=== PATIENT | female | born 1985 | race Caucasian/White ===

== ENCOUNTER 2023-10-23 13:06 | Inpatient (IN) ==
[2023-10-23] MEDS ORDERED: LIDOCAINE 1% LOCAL 20 ML VIAL INFIL PRN (13:28)
[2023-10-23] MEDS ORDERED: OXYTOCIN 30 UNITS/NSS 30 UNITS/500 ML BAG IV PRN ×3 (13:28→19:05)
[2023-10-23] MEDS: LACTATED RINGER'S 1,000 ML IV PRN ×2 (13:40→14:36)
--- NOTE | 2023-10-23 13:53 | History & Physical Report ---
Date of Service October 23, 2023 History of Present Illness Chief Complaint: onet of labor at 40.2 weeks. GBS is negative. Primary Care Provider: NO PCP see above Allergies Allergy/AdvReac Type Severity Reaction Status Date / Time No Known Allergies Allergy Unverified 10/23/23 13:36 Home Medications Medication Instructions Recorded Confirmed Type ferrous sulfate 325 mg (65 mg 325 mg PO DAILY 10/23/23 10/23/23 History iron) tablet vits no.130-ferrous fum 1 tab PO DAILY 10/23/23 10/23/23 History 27 mg iron-folic acid 800 mcg tablet ( Vitamin) Patient History Medical History Human papilloma virus Surgical History Hx of LASIK Hx of appendectomy H/O colposcopy with cervical biopsy Social History Smoking Status: Never smoker Hx Alcohol Use: No Hx Substance Use: No Preferred Language: Yakut Communication Ability: Effective Mapping Technician Required: No Beliefs That Will Affect Care: None marital status: Current Living Situation: Spouse and Family Other Information That Helps Us Care for You: No Feels Safe at Home: Yes Safety Concerns: Feels Safe At This Time Assistive Devices: None 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 Review of Systems All systems reviewed & are unremarkable except as noted in HPI & below Physical Exam Constitutional: WD/WN, vitals as above Eyes: PERRL, conjunctivae normal, anicteric sclerae Respiratory: normal respiratory effort, lungs clear to auscultation Cardiovascular: RRR, no murmur, no edema Gastrointestinal (Abdomen): normal bowel sounds, soft, nontender, no hepatosplenomegaly Musculoskeletal: Extremities: extremities normal to inspection Skin: no rashes, warm and dry Neurologic: patellar DTR's 2+ bilat, sensation intact Psychiatric: A+Ox3, euthymic affect Genitourinary: no vaginal lesions, no adnexal mass OB Exam Abdomen: + vertex Manual OB Exam: + cervical dilation 4 cm, + cervical effacement 80% and + station -2 OB Exam Monitor Tracing: + external FHT monitor used, + external uterine monitor used, + category I and + normal FHT variability EFW 8-8.5 lbs. Results & Data Vital Signs (Past 12 Hours) Vital Signs Temp Resp 10/23/23 13:39 36.7 C 20 Code Status & VTE Plan VTE Prophylaxis Plan VTE Prophylaxis will be ordered: No Monitoring External Monitor Cat 1
[2023-10-23 14:33] LABS: Hematocrit (blood only) 37.3 % (37.0-47.0); Hemoglobin 12.7 g/dl (12.0-16.0); Mean Corpuscular Hemoglobin 32.4 pg (25.0-34.0); Mean Corpuscular Volume 95.2 fL (80.0-100.0); Mean Platelet Volume 11.8 fL (9.4-12.4); Platelet Count 154 K/uL (130-400); RDW Coefficient of Variation 14.1 % (11.5-14.5); RDW Standard Deviation 48.6 fL (36.4-46.3); Red Blood Count 3.92 M/uL (4.20-5.40); White Blood Count 14.83 K/ul (4.8-10.8)
[2023-10-23] MEDS ORDERED: LIDOCAINE 2%/EPINEPHRINE 1:200,000 20 ML PF ONE (14:40)
[2023-10-23] MEDS ORDERED: BUPIVACAINE 0.25% PF 30 ML VIAL ONE (14:40)
[2023-10-23] MEDS ORDERED: fentaNYL citrate PF 100 MCG/2 ML VIAL ONE (14:40)
[2023-10-23] MEDS ORDERED: ePHEDrine sulfate 50 MG/ML AMP ONE (14:40)
[2023-10-23] MEDS ORDERED: SODIUM CHLORIDE 0.9% PF INJ 10 ML VIAL ONE (14:40)
[2023-10-23] MEDS ORDERED: fentANYL 2 MCG/ML BUPIVacaine 0.125%-NSS 100ML BAG ONE (14:40)
[2023-10-23] MEDS ORDERED: ROPIVACAINE 0.5% PF 5 MG/ML 20 ML VIAL EPI PRN (15:01)
[2023-10-23] MEDS ORDERED: SODIUM CHLORIDE 0.9% PF INJ 10 ML VIAL EPI STA (15:01)
[2023-10-23] MEDS ORDERED: fentaNYL citrate PF 100 MCG/2 ML VIAL EPI STA (15:01)
[2023-10-23] MEDS ORDERED: fentANYL 2 MCG/ML BUPIVacaine 0.125%-NSS 100ML BAG EPI PRN (15:01)
[2023-10-23] MEDS ORDERED: BUPIVACAINE 0.25% PF 30 ML VIAL EPI STA (15:01)
[2023-10-23] MEDS ORDERED: SODIUM CHLORIDE 0.9% PF INJ 10 ML VIAL EPI PRN (15:01)
[2023-10-23] MEDS ORDERED: ONDANSETRON INJ 2 MG/ML 2 ML VIAL IV PRN (15:01)
[2023-10-23] MEDS ORDERED: NALOXONE HCL 1 MG in SODIUM CHLORIDE 0.9% 1,000 ML IV PRN (15:01)
[2023-10-23] MEDS ORDERED: NALBUPHINE HCL 5 MG in SYRINGE 0 ML IV PRN (15:01)
[2023-10-23] MEDS ORDERED: ePHEDrine sulfate 50 MG/ML AMP IV PRN (15:01)
[2023-10-23] MEDS ORDERED: NALOXONE HCL 0.4 MG/1 ML VIAL/CARP IV PRN (15:01)
[2023-10-23] MEDS ORDERED: fentaNYL citrate PF 100 MCG/2 ML VIAL EPI PRN (15:01)
[2023-10-23] MEDS ORDERED: LIDOCAINE 2%/EPINEPHRINE 1:200,000 20 ML PF EPI STA (15:01)
[2023-10-23] MEDS ORDERED: LIDOCAINE 2% MPF LOCAL 5 ML VIAL EPI PRN (15:01)
[2023-10-23] MEDS ORDERED: diphenhydrAMINE 50 MG/ML VIAL IV PRN (15:01)
[2023-10-23] MEDS ORDERED: BUPIVACAINE 0.25% PF 30 ML VIAL EPI PRN (15:01)
--- NOTE | 2023-10-23 15:03 | Anesthesiology Consultation ---
Date of Service October 23, 2023 Assessment & Plan (1) Encounter for pre-operative examination: Chart Review Chart Review: Acceptable Risk for Surgery and Patient NOT seen in Pre Admission Testing Consults Requested none History Height/Weight Height: 5 ft 4 in Weight: 90.718 kg Allergies Allergy/AdvReac Type Severity Reaction Status Date / Time No Known Allergies Allergy Unverified 10/23/23 13:36 Medications Home Medications Medication Instructions Recorded Confirmed Last Taken ferrous sulfate 325 mg (65 mg 325 mg PO DAILY 10/23/23 10/23/23 10/22/23 iron) tablet vits no.130-ferrous fum 1 tab PO DAILY 10/23/23 10/23/23 10/23/23 27 mg iron-folic acid 800 mcg tablet ( Vitamin) Active Medications Generic Name Dose Route Start Last Admin Trade Name Freq PRN Reason Stop Dose Admin Lactated Ringer's 1,000 mls @ 125 mls/hr 10/23/23 13:28 10/23/23 14:36 Lr IV 10/25/23 13:27 125 mls/hr .Q8H PRN Administration L&D Protocol Protocol Past Medical History Medical History (Updated 10/23/23 @ 15:03 by Raheem Coats MD) Encounter for pre-operative examination Human papilloma virus Exercise / Class Metabolic Activity II 4-5 Yardwork/Stairs/Walk up hill Past Surgical History Surgical History Hx of LASIK Hx of appendectomy H/O colposcopy with cervical biopsy Past Anesthesia History No Hx of Anesthesia Complications and No Family Hx of Anesthesia Complications Social History Smoking Status: Never smoker Hx Alcohol Use: No Hx Substance Use: No substance use type: does not use Physical Exam Vital Signs Last Vital Signs Temp 36.7 C 10/23/23 13:39 Pulse 87 10/23/23 15:23 Resp 18 10/23/23 14:22 BP 120/74 10/23/23 15:23 Pulse Ox 100 10/23/23 15:23 Testing Laboratory Results 10/23/23 14:07
--- NOTE | 2023-10-23 17:04 | Labor Progress Brief Note ---
Date of Service October 23, 2023 Assessment & Plan Admission and Anticipated Discharge Date Admission Date: October 23, 2023 Physical Exam Genitourinary: Manual OB Exam: + cervical dilation 5 cm and 6 cm, + cervical effacement 90% and + station 0 OB Exam Monitor Tracing: + external FHT monitor used, + external uterine monitor used, + category I and + normal FHT variability AROM with Amni-hook scant fluid Results & Data Vital Signs (Past 12 Hours) Vital Signs Temp Pulse Resp BP Pulse Ox 10/23/23 17:00 106 H 92 10/23/23 16:58 74 97 10/23/23 16:54 76 112/58 L 10/23/23 16:53 80 98 10/23/23 16:48 85 98 10/23/23 16:43 78 99 10/23/23 16:40 95 H 124/66 10/23/23 16:38 84 99 10/23/23 16:33 101 H 98 10/23/23 16:30 16 10/23/23 16:30 16 10/23/23 16:28 74 98 10/23/23 16:25 75 108/56 L 10/23/23 16:23 73 99 10/23/23 16:18 85 98 10/23/23 16:13 78 98 10/23/23 16:08 86 99 10/23/23 16:05 80 122/65 10/23/23 16:03 82 98 10/23/23 16:00 75 18 121/64 10/23/23 15:58 82 99 10/23/23 15:55 83 122/68 10/23/23 15:53 86 99 10/23/23 15:50 77 118/66 10/23/23 15:48 85 97 10/23/23 15:47 68 129/60 10/23/23 15:45 18 10/23/23 15:45 18 10/23/23 15:43 81 97 10/23/23 15:40 77 132/65 10/23/23 15:38 97 10/23/23 15:38 77 10/23/23 15:38 71 128/77 10/23/23 15:37 20 10/23/23 15:37 20 10/23/23 15:36 83 116/66 10/23/23 15:34 90 116/66 10/23/23 15:33 87 96 10/23/23 15:32 18 10/23/23 15:32 18 10/23/23 15:31 76 107/55 L 10/23/23 15:30 77 102/55 L 10/23/23 15:28 78 103/59 L 97 10/23/23 15:26 77 123/58 L 10/23/23 15:23 87 120/74 100 10/23/23 15:21 78 118/74 10/23/23 15:20 90 113/73 10/23/23 15:18 85 97 10/23/23 15:13 81 99 10/23/23 15:08 83 99 10/23/23 15:03 71 99 10/23/23 15:00 18 10/23/23 15:00 18 10/23/23 14:58 78 99 10/23/23 14:53 79 97 10/23/23 14:48 82 98 10/23/23 14:43 77 99 10/23/23 14:38 79 100 10/23/23 14:36 75 114/79 10/23/23 14:22 18 10/23/23 14:22 18 10/23/23 13:39 36.7 C 20 10/23/23 13:30 20 10/23/23 13:30 20
[2023-10-23] MEDS ORDERED: BENZOCAINE 20% SPRY 85 APPLN/85 GM CAN EXT PRN (19:05)
[2023-10-23] MEDS ORDERED: DIPHTHERIA/TETANUS/PERTUSSIS Vaccine (Tdap, Age 7+yrs) 0.5mL SYR/VL IM ONE (19:05)
[2023-10-23] MEDS ORDERED: bisacodyL 10 MG SUPP PR PRN (19:05)
[2023-10-23] MEDS ORDERED: HYDROCORTISONE ACETATE 25 MG SUPP PR PRN (19:05)
[2023-10-23] MEDS ORDERED: ACETAMINOPHEN 325 MG TAB PO PRN (19:05)
[2023-10-23] MEDS ORDERED: IBUPROFEN 600 MG TAB PO PRN (19:05)
--- NOTE | 2023-10-23 19:07 | Delivery Summary ---
Vaginal Delivery Summary Date of Service October 23, 2023 Vaginal Delivery Summary live female KATHERINE over intact perineum with nuchal cord x1 reduced at delivery with delayed cord clamping and Apgars 8/9 weight pending. Cord blood obtained followed by spontaneous delivery of intact placenta. No tears. EBL 150 ml. Final sponge and instrument count are correct. Mom and baby stable.
--- NOTE | 2023-10-23 20:05 | Anesthesia Procedure Note ---
Date of Service October 23, 2023 Anesthesia Post Epidural Note Vital Signs Vital Signs: Temp Pulse Resp BP Pulse Ox 36.6 C 80 18 98/57 L 96 10/23/23 19:15 10/23/23 20:00 10/23/23 19:45 10/23/23 20:00 10/23/23 19:43 Notes Mental Status: alert / awake / arousable and participated in evaluation Patient Amnestic to Procedure: No Nausea / Vomiting: adequately controlled Pain: adequately controlled Airway Patency, RR, SpO2: stable & adequate BP & HR: stable & adequate Hydration State: stable & adequate Neuraxial Anesthesia: was administered and sensory block is resolving Anesthetic Complications: no major complications apparent and Pt Satisfied with anesthetic care Epidural: Removed without complications and With tip intact
--- OUTSIDE RECORDS SUMMARY | 2023-10-23 22:14 | External Medical Summary | Summary of Care ---
Author Name Unknown Organization [facility] Address [address] [facility] [place] [address] Phone [phone] Care Team Providers Care Family Services Manager Name Role Phone Unavailable Primary Care Provider Unavailabl e Reason for Visit * Reason Onset Date Comments Advice 07/15/2023 Encounter Details Date Type Department Care Team (Late st Contact Info) Description 07/15/2023 Telephone [facility]necology[facility] [address] [place] [address] Na Khan CRNP [address] [place] [address] Advice Allergies No known active allergiesdocumented as of this encounter (statuses as of 10/14/2023) Medications Medication Sig Dispensed Refills Start Date End Date Status Multivitamin Adult Oral Tablet Chewable Take by mouth. 0 Activ e Folic Acid 0.8 MG Oral Capsule Take by mouth. 0 Active documented as of this encounter (statuses as of 10/14/2023) Active Problems Problem Noted Date Diagnosed Date Antepartum anemia complicating 023 History of abnormal cervical Pap smear 3 Overview: Pap at NOB NILM/+HPV. Needs colpo . Normal 03/14/2023 AMA (advanced maternal age) multigravida 35+ History of macrosomia in inf ant in prior , currently 03/14/2023 Overview: 2nd child 4.338 kg - consider 3rd trimester growth u/s Estimated Date of Delivery Comme nts Yes 10/21/2023 Based on last me nstrual period of 01/14/2023 documented as of this encounter (statuses as of 10/14/2023) Social History Tobacco Use Types Packs/Day Years Used Date Smoking Tobacco: Never Smokeless Tobacco: Never Alcohol Use Standard Drinks/Week Comments Not Currently 0 (1 standard drink = 0.6 oz pur e alcohol) PHQ-2 Answer Date Recorded PHQ Adult Total Score 1 10/08/2023 Hunger Vital Sign Answer Date Recorded Within the past 12 months, y ou worried that your food would run out before you got the money to buy more. Never true 05/30/20 23 Within the past 12 months, t he food you bought just didn't last and you didn't have money to get more. Never true 05/30/2023 [place] Depression Scale Answer Date Recorded [place] Depression Scale Total 4 09/19/2023 The thought of harming myself has occurred to me . Never 09/19/2023 Estimated Date of Delivery Comme nts Yes 10/21/2023 Based on last me nstrual period of 01/14/2023 Sex and Gender Information Value Date Recorded Sex Assigned at Female 04/08/2022 10:09 PM EDT Gender Identity Female 04/08/2022 10:09 PM EDT Sexual Orientation Straight 04/08/2022 10 :09 PM EDT Job Start Date Occupation Industry Not on file Not on file Not on file documented as of this encounter Miscellaneous Notes * Telephone Encounter - Wen Coreas OSA - 07/15/2023 10:02 AM EDT Pt called to let us know she cannot make the appt that was scheduled on 08/01. She will have her glucola screening done at the [facility] lab in 2 wks. She will keep her scheduled 08/18 appt, but if glucola numbers come back abnormal she will make it work to come in sooner. 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 Advised to schedule appts out due to this. documented in this encounter Plan of Treatment Upcoming Encounters Date Type Department Care Team (Late st Contact Info) Description 10/21/2023 10:00 AM EST Office Visit Gynecology/Obstetrics [facility] [address] [place] [address] Na Khan CRNP [address] [place] [phone] Health Maintenance Due Date Last Done Comments Diabetes Screening 1984 Hepatitis B (1 of 3 - 3-dose series) 1984 COVID-19 Vaccine (#1) 1984 DTaP,Tdap,and Td Vaccines (1 - Tdap) 2003 Influenza Vaccine (FLU shot) (#1) 2023 Depression Screening 10/08/2024 10/08/2023 Pap Smear 03/14/2026 03/14/2023, 03/07/2022 Cervical Cancer Screening 03/14/2028 HPV/Co-Test 03/14/2028 03/14/2023 GARDASIL-HPV IMMUNIZATION SERIES Aged Out No longer eligible b ased on patient's age to complete this topic MENINGOCOCCAL (MENACTRA/MENVEO) Aged Out No longer eligible b ased on patient's age to complete this topic Pneumococcal Vaccine: Pediatrics (0 to 5 Years) and At-Risk Patients (6 to 64 Years) Aged Out No longer eligible b ased on patient's age to complete this topic documented as of this encounter Medical Devices Not on filedocumented as of this encounter
--- OUTSIDE RECORDS SUMMARY | 2023-10-23 22:14 | External Medical Summary | Summary of Care ---
Author Name Unknown Organization [facility] Address [address] [facility] [place] [address] Phone [phone] Care Team Providers Care Mine Boss Name Role Phone Unavailable Primary Care Provider Unavailabl e Reason for Visit * Reason Comments Return Visit Encounter Details Date Type Department Care Team (Late st Contact Info) Description 10/21/2023 10:00 AM EST Office Visit [facility] [address] [place] [address] Na Khan CRNP [address] [place] [phone] Normal in third trimester*; Multigravida of advanced maternal age in third trimester; History of macrosomia in in prior , currently ; History of abnormal cervical Pap smear; Antepartum anemia complicating ; Post-term , 40-42 weeks of gestation Allergies No known active allergiesdocumented as of this encounter (statuses as of 10/21/2023) Medications Medication Sig Dispensed Refills Start Date End Date Status Multivitamin Adult Oral Tablet Chewable Take by mouth. 0 Active Folic Acid 0.8 MG Oral Capsule Take by mouth. 0 Active Breast Pump Dispense double electric breast pump. Dx Z39.1 1 Each 0 09/25/2023 Active Iron 325 (65 Fe) MG Oral Tablet Take by mouth. 0 Active documented as of this encounter (statuses as of 10/21/2023) Active Problems Problem Noted Date Diagnosed Date [...] as of this encounter (statuses as of 10/21/2023) Social History Tobacco Use Types Packs/Day Years [...] money to get more. Never true 05/30/2023 [place] Depression Scale Answer Date Recorded [place] Depression Scale Total 4 09/19/2023 The thought [...] on file documented as of this encounter Last Filed Vital Signs Vital Sign Reading Time Taken Comments Blood Pressure 110/64 10/21/2023 10:00 AM EST Pulse - - Temperature - - Respiratory Rate - - Oxygen Saturation - - Inhaled Oxygen Concentration - - Weight 90.7 kg (200 lb) 10/21/2023 10:00 AM EST Height 165.1 cm (5' 5") 10/21/2023 10:00 AM EST Body Mass Index 33.28 10/21/2023 10:00 AM EST documented in this encounter Progress Notes * Na Khan CRNP - 10/21/2023 10:23 AM EST 40w No concerns. Baby is active. No contractions, no bleeding or LOF. Discussed IOL, agreeable at 42w. Scheduled for 11/04. Arnp Documentation Provider requested ssas developer. Name of ssas developer: STEVE Antony * Dara Joel LPN - 10/21/2023 10:00 AM EST 40w0d Would like cervix checked documented in this encounter Plan of Treatment Upcoming Encounters Date Type Department Care Team (Late st Contact Info) Description 10/28/2023 1:15 PM EST Imaging Radiology [facility] [address] [place] [phone] 10/28/2023 2:00 PM EST [facility] [address] [place] [address] Addison Rivera MD [address] [place] [phone] [facility], Non Stress Tests [facility] [address] [place] [address] 12/02/2023 11:30 AM EST Office Visit Gynecology/Obstetrics [facility] [address] [place] [address] Na Khan CRNP [address] [place] [address] Scheduled Orders Name Type Priority Associated Diagnoses Orde r Schedule US PREG LIMITED 1 OR MORE FETUSES Medical Imaging Routine Post-term , 40-42 weeks of gestation Expected: 10/28/2023 (Approximate), Expires: 11/20/2024 Health Maintenance Due Date Last Done Comments [...] Not on filedocumented as of this encounter Visit Diagnoses Diagnosis Normal in third trimester- Primary Multigravida of advanced maternal age in third trimester History of macrosomia in infant in prior , currently with other poor obstetric history History of abnormal cervical Pap smear Personal history of other genital system and obstetric disorders Antepartum anemia complicating Anemia, antepartum Post-term , 40-42 weeks of gestation Post term , unspecified episode of care documented in this encounter
--- OUTSIDE RECORDS SUMMARY | 2023-10-23 22:15 | External Medical Summary | Summary of Care ---
Author Name Unknown Organization [facility] Address [address] [facility] [place] [address] Phone [phone] Care Team Providers Care Retail Management Trainee Name Role Phone Unavailable Primary Care Provider Unavailabl e Reason for Visit * Reason Comments Return Visit Encounter Details Date Type Department Care Team (Late st Contact Info) Description 10/13/2023 9:45 AM EST Office Visit Gynecology/Obstetric s [address] [place] [address] Na Khan CRNP [address] [place] [address] Normal in third trimester*; Antepartum multigravida of advanced maternal age; History of macrosomia in infant in prior , currently ; History of abnormal cervical Pap smear; Antepartum anemia complicating Allergies No known active allergiesdocumented as of this encounter (statuses as of 10/13/2023) Medications Medication Sig Dispensed Refills Start Date End Date Status Multivitamin Adult Oral Tablet Chewable Take by mouth. 0 Active Folic Acid 0.8 MG Oral Capsule Take by mouth. 0 Active Breast Pump Dispense double electric breast pump. Dx Z39.1 1 Each 0 09/25/2023 Active Iron 325 (65 Fe) MG Oral Tablet Take by mouth. 0 Active Iron-Vitamin C 65-125 MG Oral Tablet (Vitron C)Indications:Ante anemia complicating Take 1 Tablet by mouth in the morning. 60 Tablet 3 07/30/2023 10/13/2023 Discontinued (Medication List Clean Up) documented as of this encounter (statuses as of 10/13/2023) Active Problems Problem Noted Date Diagnosed Date [...] as of this encounter (statuses as of 10/13/2023) Social History Tobacco Use Types Packs/Day Years [...] money to get more. Never true 05/30/2023 [place] Depression Scale Answer Date Recorded [place] Depression Scale Total 4 09/19/2023 The thought [...] Sign Reading Time Taken Comments Blood Pressure 116/70 10/13/2023 9:42 AM EST Pulse - - Temperature - - Respiratory Rate - - Oxygen Saturation - - Inhaled Oxygen Concentration - - Weight - - Height 165.1 cm (5' 5") 10/13/2023 9:42 AM EST Body Mass Index - - documented in this encounter Progress Notes * Na Khan CRNP - 10/13/2023 9:55 AM EST 38w6d Complaints: none Feeling well overall. Good FM. No contractions, bleeding, or LOF. Continues to decline IOL. STEVE Nowak * Dara Joel LPN - 10/13/2023 9:40 AM EST 38w6d Denies any issues documented in this encounter Plan of Treatment Upcoming Encounters Date Type Department Care Team (Late st Contact Info) Description 10/21/2023 10:00 AM EST Office Visit Gynecology/Obstetrics [facility] [address] [place] [address] Na Khan CRNP [address] [place] [address] Health Maintenance Due Date Last Done Comments [...] Diagnoses Diagnosis Normal in third trimester- Primary Antepartum multigravida of advanced maternal age History of macrosomia in in prior , currently with other poor obstetric history History of abnormal cervical Pap smear Personal history of other genital system and obstetric disorders Antepartum anemia complicating Anemia, antepartum documented in this encounter
--- OUTSIDE RECORDS SUMMARY | 2023-10-23 22:15 | External Medical Summary ---
Author Name Unknown Address Unknown Organization [id number]:[facility] [place] [address] [facility] [address] Laboratory Report Ordering Provider Test Date Status EB MARCUS 09/25/2023 09:09:32 Final Observation Date Value Abnormality Reference (Units ) Status Streptococcus agalactiae DNA [Presence] in Specimen by CELESTINO with probe detection 09/25/2023 09:09:32 Negative Negative Final No Group B Streptococcus det ected by culture-enhanced PCR (amplified probe).
The collection of vaginal/rectal swab specimen combinations (FDA approved specimen type) is optimal for the detection of Group B Streptococcus. Single source collection (vaginal only or rectal only) or alternate specimen sources may lead to false negative results. Performing Location [facility] [place] [address] [place] [address]
--- OUTSIDE RECORDS SUMMARY | 2023-10-23 22:15 | External Medical Summary | Summary of Care ---
Author Name Unknown Organization [facility] Address [address] [place] [address] Phone [phone] Care Team Providers Care Collections Rep Name Role Phone Unavailable Primary Care Provider Unavailabl e Reason for Visit * Reason Onset Date Comments MyCode Consent 10/13/2023 Encounter Details Date Type Department Care Team ([facility] st Contact Info) Description 10/13/2023 Orders Only Outcomes Research Department [address] [place] [address] Karen Mishra CHRA MyCode Research Other*[id number]* Allergies No known active allergiesdocumented as of this encounter (statuses as of 10/13/2023) Medications Medication Sig Dispensed Refills Start Date End Date Status Multivitamin Adult Oral Tablet Chewable Take by mouth. 0 Active Folic Acid 0.8 MG Oral Capsule Take by mouth. 0 Active Breast Pump Dispense double electric breast pump. Dx Z39.1 1 Each 0 09/25/2023 Active Iron-Vitamin C 65-125 MG Oral Tablet [...] money to get more. Never true 05/30/2023 [place] Depression Scale Answer Date Recorded [place] Depression Scale Total 4 09/19/2023 The thought [...] on file documented as of this encounter Progress Notes * Karen Mishra CHRA - 10/13/2023 9:36 AM EST MyCode Consent Documentation Fidelia Rosado provided consent/authorization to participate in the [employer]. documented in this encounter Plan of Treatment Upcoming Encounters Date Type Department Care Team (Late st Contact Info) Description 10/21/2023 10:00 AM EST Office Visit Gynecology/Obstetrics [address] [place] [address] Na Khan CRNP [address] [place] [address] Scheduled Orders Name Type Priority Associated Diagnoses Orde r Schedule MYCODE INITIAL ADULT Lab Routine MyCode Research Other*[id number] Expected: 10/13/2023 (Approximate), Expires: 11/01/2024 Health Maintenance Due Date Last Done Comments [...] as of this encounter Visit Diagnoses Diagnosis MyCode Research Other*[id number]- Primary documented in this encounter
--- OUTSIDE RECORDS SUMMARY | 2023-10-23 22:15 | External Medical Summary | Summary of Care ---
Author Name Unknown Organization [facility] Address [address] [facility] [place] [address] Phone [phone] Care Team Providers Care Sandfill Operator Surface Name Role Phone Unavailable Primary Care Provider Unavailabl e Reason for Visit * Reason Comments Return Visit Encounter Details Date Type Department Care Team (Late st Contact Info) Description 10/03/2023 9:30 AM EST Office Visit Gynecology/Obstetric s [facility] [address] [facility] [place] [address] Tahmina Zhu, CN [address] [facility] [place] [address] Antepartum multigravida of advanced maternal age*; History of macrosomia in infant in prior , currently ; History of abnormal cervical Pap smear; Antepartum anemia complicating Allergies No known active allergiesdocumented as of this encounter (statuses as of 10/03/2023) Medications Medication Sig Dispensed Refills Start Date End Date Status Multivitamin Adult Oral Tablet Chewable Take by mouth. 0 Active Folic Acid 0.8 MG Oral Capsule Take by mouth. 0 Active Iron-Vitamin C 65-125 MG Oral Tablet (Vitron C)Indications:Antepar kendall anemia complicating Take 1 Tablet by mouth in the morning. 60 Tablet 3 07/30/2023 Active Breast Pump Dispense double electric breast pump. Dx Z39.1 1 Each 0 09/25/2023 Active documented as of this encounter (statuses as of 10/03/2023) Active Problems Problem Noted Date Diagnosed Date [...] as of this encounter (statuses as of 10/03/2023) Social History Tobacco Use Types Packs/Day Years Used Date Smoking Tobacco: Never Smokeless Tobacco: Never Alcohol Use Standard Drinks/Week Comments Not Currently 0 (1 standard drink = 0.6 oz pur e alcohol) Hunger Vital Sign Answer Date Recorded Within the past 12 months, y ou worried that your food would run out before you got the money to buy more. Never true 05/30/20 23 Within the past 12 months, t he food you bought just didn't last and you didn't have money to get more. Never true 05/30/2023 [place] Depression Scale Answer Date Recorded [place] Depression Scale Total 4 09/19/2023 The thought [...] Sign Reading Time Taken Comments Blood Pressure 124/78 10/03/2023 9:22 AM EST Pulse - - Temperature - - Respiratory Rate - - Oxygen Saturation - - Inhaled Oxygen Concentration - - Weight - - Height 165.1 cm (5' 5") 10/03/2023 9:22 AM EST Body Mass Index - - documented in this encounter Progress Notes * Tahmina Zhu, DEJAH - 10/03/2023 1:03 PM EST 37w3d Doing well, occasional cramping. Will increase fluids GBS neg Reviewed labor precautions, kick counts, loss of fluid, vaginal bleeding, round ligament pain, and encouraged hydration. RTO in 1 week or PRN documented in this encounter Nursing Notes * Keyonna García RN - 10/03/2023 9:24 AM EST Patient here for DAMION visit 37w3d No concerns documented in this encounter Plan of Treatment Upcoming Encounters Date Type Department Care Team (Late st Contact Info) Description 10/08/2023 4:30 PM EST Office Visit Gynecology/Obstetrics [facility] [address] [place] [address] Shelly Whipple PA-C [address] [place] [address] 10/15/2023 3:00 PM EST Office Visit Gynecology/Obstetrics [facility] [address] [place] [address] Na Khan CRNP [address] [place] [address] 10/21/2023 10:00 AM EST Office Visit Gynecology/Obstetrics [facility] [address] [place] [address] Na Khan CRNP [address] [place] [address] Health Maintenance Due Date Last Done Comments Diabetes Screening 1984 Hepatitis B (1 of 3 - 3-dose series) 1984 COVID-19 Vaccine (#1) 1984 Depression Screening 1996 DTaP,Tdap,and Td Vaccines (1 - Tdap) 2003 Influenza Vaccine (FLU shot) (#1) 2023 Pap Smear 03/14/2026 03/14/2023, 03/07/2022 Cervical Cancer [...] as of this encounter Visit Diagnoses Diagnosis Antepartum multigravida of advanced maternal age- Primary History of macrosomia in infant in prior , currently with other poor obstetric history History of abnormal cervical Pap smear Personal history of other genital system and obstetric disorders Antepartum anemia complicating Anemia, antepartum documented in this encounter
--- OUTSIDE RECORDS SUMMARY | 2023-10-23 22:15 | External Medical Summary ---
Author Name Unknown Address Unknown Organization K01:[facility] [place] - [address] [place] [address] Laboratory Report Ordering Provider Test Date Status SHEELA MARTINI 09/19/2023 13:23:57 Final Observation Date Value Abnormality Reference (Units ) Status WBC, Total 09/19/2023 13:23:57 9.46 4.00-10.8 0 (K/uL) Final RBC 09/19/2023 13:23:57 3.92 3.85-5.15 (M/uL) Final Hemoglobin 09/19/2023 13:23:57 12.6 12.0-15.3 (g/dL) Final Anemia reflex testing trigge rs on a HGB < 12.0 for Females and HGB < 13.0 for Males in accordance with the WHO Anemia Guidelines
Anemia reflex testing triggers on a HGB < 12.0 for Females and HGB < 13.0 for Males in accordance with the WHO Anemia Guidelines HCT 09/19/2023 13:23:57 40.0 36.0-45.2 (%) Final MCV 09/19/2023 13:23:57 102.0 81.5-97.5 (fL) Final MCH 09/19/2023 13:23:57 32.1 27.0-34.0 (pg) Final MCHC 09/19/2023 13:23:57 31.5 32.0-36.0 (g/dL) Final RDW 09/19/2023 13:23:57 15.3 11.5-15.5 (%) Final Platelets 09/19/2023 13:23:57 186 140-400 (K /uL) Final MPV 09/19/2023 13:23:57 11.7 6.6-11.1 ( fL) Final Nucleated erythrocytes/100 leukocytes [Ratio] in Blood by Automated count 09/19/2023 13:23:57 0 <=0 (/100 WBCs) Fi [facility] Performing Location [facility] - [address] [facility] [address]
--- OUTSIDE RECORDS SUMMARY | 2023-10-23 22:15 | External Medical Summary | Summary of Care ---
Author Name Unknown Organization [facility] Address [address] [place] [facility] [place] [address] Phone [phone] Care Team Providers Care Wetland Scientist Name Role Phone Unavailable Primary Care Provider Unavailabl e Reason for Visit * Reason Comments Outpatient Testing Encounter Details Date Type Department Care Team (Late st Contact Info) Description 09/19/2023 1:50 PM EDT Laboratory Laboratory, [facility] 132 [facility] [place] [phone] [facility] [address] Antepartum anemia complicating Allergies No known active allergiesdocumented as of this encounter (statuses as of 09/19/2023) Medications Medication Sig Dispensed Refills Start Date End Date Status Multivitamin Adult Oral Tablet Chewable Take by mouth. 0 Active Folic Acid 0.8 MG Oral Capsule Take by mouth. 0 Active Iron-Vitamin C 65-125 MG Oral Tablet (Vitron C)Indications:Antepart um anemia complicating Take 1 Tablet by mouth in the morning. 60 Tablet 3 07/30/2023 Active documented as of this encounter (statuses as of 09/19/2023) Active Problems Problem Noted Date Diagnosed Date [...] as of this encounter (statuses as of 09/19/2023) Social History Tobacco Use Types Packs/Day Years [...] money to get more. Never true 05/30/2023 [place] Depression Scale Answer Date Recorded [place] Depression Scale Total 4 09/19/2023 The thought [...] on file documented as of this encounter Plan of Treatment Upcoming Encounters Date Type Department Care Team (Late st Contact Info) Description 09/19/2023 2:15 PM EDT Imaging Radiology [facility] 2nd [facility] [address] [place] [address] Normal in third trimester; Uterine size date discrepancy 09/25/2023 8:45 AM EDT Office Visit Gynecology/Obstetric s [facility] [address] [place] [address] Na Khan CRNP [address] [place] [address] 10/03/2023 9:30 AM EST Office Visit Gynecology/Obstetric [facility] [address] [place] [address] Tahmina Zhu, [facility] [place] [address] 10/08/2023 4:30 PM EST Office Visit Gynecology/Obstetric [facility] [address] [place] [address] Shelly Whipple PA-C [address] [place] [address] 10/15/2023 3:00 PM EST Office Visit Gynecology/Obstetric [facility] [address] [place] [address] Na Khan CRNP [address] [place] [address] 10/21/2023 10:00 AM EST Office Visit Gynecology/Obstetric [facility] [address] [place] [address] Na Khan CRNP [address] [place] [address] Pending Results Name Type Priority Associated Diagnoses Date /Time CBC WITH WBC DIFFERENTIAL AND ANEMIA REFLEX WORKUP Lab Routine Antepartum anemia complicating 09/19/2023 1:23 PM EDT ANEMIA CBC Lab Routine Antepartum anemia complicating 09/19/2023 1:23 PM EDT DIFFERENTIAL, AUTOMATED Lab Routine Antepartum anemia complicating 09/19/2023 1:23 PM EDT ANEMIA REFLEX CHEMISTRY HOLD Lab Routine Antepartum anemia complicating 09/19/2023 1:23 PM EDT Health Maintenance Due Date Last Done Comments [...] encounter Visit Diagnoses Diagnosis Normal in third trimester Uterine size date discrepancy Uterine size date discrepancy, antepartum condition or complication Antepartum anemia complicating Anemia, antepartum documented in this encounter
--- OUTSIDE RECORDS SUMMARY | 2023-10-23 22:15 | External Medical Summary | Summary of Care ---
Author Name Unknown Organization [facility] Address [address] [facility] [place] [address] Phone [phone] Care Team Providers Care Cable Driller Name Role Phone Unavailable Primary Care Provider Unavailabl e Reason for Visit * Reason Comments Return Visit Encounter Details Date Type Department Care Team (Late st Contact Info) Description 10/08/2023 4:30 PM EST Office Visit Gynecology/Obstetric s [facility] [address] [place] [address] Shelly Whipple PA-C [address] [place] [address] Normal in third trimester*; Multigravida of advanced maternal age in third trimester; History of macrosomia in infant in prior [...] money to get more. Never true 05/30/2023 [place] Depression Scale Answer Date Recorded [place] Depression Scale Total 4 09/19/2023 The thought [...] Sign Reading Time Taken Comments Blood Pressure 118/68 10/08/2023 4:31 PM EST Pulse - - Temperature - - Respiratory Rate - - Oxygen Saturation - - Inhaled Oxygen Concentration - - Weight 90.7 kg (200 lb) 10/08/2023 4:31 PM EST Height 165.1 cm (5' 5") 10/08/2023 4:31 PM EST Body Mass Index 33.28 10/08/2023 4:31 PM EST documented in this encounter Progress Notes * Shelly Whipple PA-C - 10/08/2023 4:49 PM EST 38w1d Doing well, no concern. Intermittent contractions. Some BH. Desires cervical check. No bleeding, noleaking. Baby is active. Reviewed IOL, patient declines scheduling today. Gold And Silver Assayer Documentation Provider requested pipefitter. Name of pipefitter: SANJU Hassan Labor precaution given. RTC in 1 week. Shelly Whipple PA-C * Dara Joel LPN - 10/08/2023 4:32 PM EST 38w1d Would like cervix checked documented in this encounter Plan of Treatment Upcoming Encounters Date Type Department Care Team (Late st Contact Info) Description 10/13/2023 9:45 AM EST Office Visit Gynecology/Obstetrics [address] [place] [address] Na Khan CRNP [address] [place] [address] 10/21/2023 10:00 AM EST Office Visit Gynecology/Obstetrics [facility] [address] [place] [address] Na Khan CRNP [address] [place] [address] Health Maintenance Due Date Last Done Comments [...] in third trimester History of macrosomia in in prior , currently with other poor obstetric history History of abnormal cervical Pap smear Personal history of other genital system and obstetric disorders Antepartum anemia complicating Anemia, antepartum documented in this encounter
--- OUTSIDE RECORDS SUMMARY | 2023-10-23 22:15 | External Medical Summary | Summary of Care ---
Author Name Unknown Organization [facility] Address [address] [facility] [address] Phone [phone] Care Team Providers Care Ferris Wheel Operator Name Role Phone Unavailable Primary Care Provider Unavailabl e Reason for Visit * Reason Comments Return Visit Encounter Details Date Type Department Care Team (Late st Contact Info) Description 09/25/2023 8:45 AM EDT Office Visit Gynecology/Obstetric s [facility] [address] [place] [address] Na Khan CRNP [address] [place] [address] Multigravida of advanced maternal age in third trimester*; Normal in third trimester; History of macrosomia in infant in prior , currently ; History of abnormal cervical Pap smear; Antepartum anemia complicating Allergies No known active allergiesdocumented as of this encounter (statuses as of 10/01/2023) Medications Medication Sig Dispensed Refills Start Date [...] as of this encounter (statuses as of 10/01/2023) Active Problems Problem Noted Date Diagnosed Date [...] as of this encounter (statuses as of 10/01/2023) Social History Tobacco Use Types Packs/Day Years [...] money to get more. Never true 05/30/2023 [place] Depression Scale Answer Date Recorded [place] Depression Scale Total 4 09/19/2023 The thought [...] Sign Reading Time Taken Comments Blood Pressure 102/68 09/25/2023 8:42 AM EDT Pulse - - Temperature - - Respiratory Rate - - Oxygen Saturation - - Inhaled Oxygen Concentration - - Weight 89.8 kg (198 lb) 09/25/2023 8:42 AM EDT Height 165.1 cm (5' 5") 09/25/2023 8:42 AM EDT Body Mass Index 32.95 09/25/2023 8:42 AM EDT documented in this encounter Progress Notes * Na Khan CRNP - 09/25/2023 9:07 AM EDT 36w2d No concerns. Baby is active. No contractions, bleeding or LOF. GBS today. Dukey Rider Documentation Provider requested employee communications specialist. Name of employee communications specialist: STEVE Marcus * Fatimah Onrelas LPN - 09/25/2023 8:43 AM EDT 36w2d Pt denies any concerns. GBS today. documented in this encounter Plan of Treatment Upcoming Encounters Date Type Department Care Team (Late st Contact Info) Description 10/03/2023 9:30 AM EST Office Visit Gynecology/Obstetrics [facility] [address] [place] [address] Tahmina Zhu, CN [address] [place] [address] 10/08/2023 4:30 PM EST Office Visit Gynecology/Obstetrics [facility] [address] [place] [address] Shelly Whipple PA-C [address] [place] [address] 10/15/2023 3:00 PM EST Office Visit Gynecology/Obstetrics [facility] [address] [place] [address] Na Khan CRNP [address] [place] [address] 10/21/2023 10:00 AM EST Office Visit Gynecology/Obstetrics [facility] [address] [place] [address] Na Khan CRNP [address] [place] [address] Health Maintenance Due Date Last Done Comments [...] Not on filedocumented as of this encounter Procedures Procedure Name Priority Date/Time Associated Diagnosis Comments GROUP B STREP CULTURE/PCR Routine 09/25/2023 9:09 AM EDT Normal in third trimester documented in this encounter Results * GROUP B STREP CULTURE/PCR (09/25/2023 9:09 AM EDT) Group B Strep PCR Result Negative Negative 09/26/2023 11:23 AM EDT [facility] Comment: No Group B Streptococcus detected by culture-enhanced PCR (amplified probe). The collection of vaginal/rectal swab specimen combinations (FDA approved specimen type) is optimal for the detection of Group B Streptococcus. Single source collection (vaginal only or rectal only) or alternate specimen sources may lead to false negative results. Swab Rectum and vagina, CS / Unknown 09/25/2023 9:09 AM EDT 09/25/2023 9:09 AM EDT Na [facility] - GENERAL ORDERABLES LAB[facility]ORY [facility] [address] [place] [address] documented in this encounter Visit Diagnoses Diagnosis Multigravida of advanced maternal age in third trimester- Primary Normal in third trimester History of macrosomia in infant in prior , currently with other poor obstetric history History of abnormal cervical Pap smear Personal history of other genital system and obstetric disorders Antepartum anemia complicating Anemia, antepartum documented in this encounter
--- OUTSIDE RECORDS SUMMARY | 2023-10-23 22:15 | External Medical Summary | Summary of Care ---
Author Name Unknown Organization [facility] Address [address] [facility] [address] Phone [phone] Care Team Providers Care Consumer Loan Specialist Name Role Phone Unavailable Primary Care Provider Unavailabl e Reason for Visit * Reason Comments Outpatient Testing Encounter Details Date Type Department Care Team Description 07/29/2023 Laboratory Laboratory [address] [place] [phone] [place] [address] Normal in second trimester; History of macrosomia in infant in prior , currently Allergies No known active allergiesdocumented as of this encounter (statuses as of 07/29/2023) Medications Medication Sig Dispensed Refills Start Date End Date Status Multivitamin Adult Oral Tablet Chewable Take by mouth. 0 Activ e Folic Acid 0.8 MG Oral Capsule Take by mouth. 0 Active documented as of this encounter (statuses as of 07/29/2023) Active Problems Problem Noted Date History of abnormal cervical Pap smear 0 04/11/2023 Overview: Pap at NOB NILM/+HPV. Needs colpo . Normal 03/14/2023 AMA (advanced maternal age) multigravida 35+ 03/14/2023 History of macrosomia in infant in prior , currently 03/14/2023 Overview: 2nd child 4.338 kg - consider 3rd trimester growth u/s Estimated Date of Delivery Comme nts Yes 10/21/2023 Based on last me nstrual period of 01/14/2023 documented as of this encounter (statuses as of 07/29/2023) Social History Tobacco Use Types Packs/Day Years Used Date Smoking Tobacco: Never Smokeless Tobacco: Never Alcohol Use Standard Drinks/Week Comments Not Currently 0 (1 standard drink = 0.6 oz pur e alcohol) Food Insecurity Answer Date Recorded Within the past 12 months, y ou worried that your food would run out before you got money to buy more. Never true 05/31/2023 Within the past 12 months, t he food you bought just didn't last and you didn't have money to get more. Never true 05/31/2023 Estimated Date of Delivery Comme nts Yes 10/21/2023 Based on last me nstrual period of 01/14/2023 Sex Assigned at Date Recorded Female 04/08/2022 10:09 PM EDT Job Start Date Occupation Industry Not on file Not on file Not on file documented as of this encounter Plan of Treatment Upcoming Encounters Date Type Specialty Care Team Description 08/18/2023 Office Visit Gynecology Obstetrics Backer, STEVE Miller [address] [place] [address] Pending Results Name Type Priority Associated Diagnoses Date /Time 50-G GESTATIONAL GLUCOSE, 1 HOUR Lab Routine Normal in second trimester History of macrosomia in infant in prior , currently 07/29/2023 4:25 PM EDT CBC WITH WBC DIFFERENTIAL AND ANEMIA REFLEX WORKUP Lab Routine Normal in second trimester 07/29/2023 4:25 PM EDT SYPHILIS ANTIBODY SCREEN WITH REFLEX TO RPR Lab Routine Normal in second trimester 07/29/2023 4:25 PM EDT ANEMIA CBC Lab Routine Normal in second trimester 07/29/2023 4:25 PM EDT DIFFERENTIAL, AUTOMATED Lab Routine Normal in second trimester 07/29/2023 4:25 PM EDT ANEMIA REFLEX CHEMISTRY HOLD Lab Routine Normal in second trimester 07/29/2023 4:25 PM EDT SYPHILIS ANTIBODY SCREEN Lab Routine Normal in second trimester 07/29/2023 4:25 PM EDT Health Maintenance Due Date Last Done Comments Diabetes Screening 1984 Hepatitis B (1 of 3 - 3-dose series) 1984 COVID-19 Vaccine (#1) 1984 Depression Screening, Annual for Pts 12 and Over 1996 DTaP,Tdap,and Td Vaccines (1 - Tdap) 2003 Influenza Vaccine (FLU shot) (#1) 2023 Pap Smear 03/14/2026 03/14/2023, 03/07/2022 Cervical Cancer Screening 03/14/2028 HPV/Co-Test 03/14/2028 03/14/2023 Hepatitis C Screening Completed 03/14/2023 , 03/14/2023, 03/14/2023 GARDASIL-HPV IMMUNIZATION SERIES Aged Out No [...] this encounter Visit Diagnoses Diagnosis Normal in second trimester History of macrosomia in in prior , currently with other poor obstetric history documented in this encounter
--- OUTSIDE RECORDS SUMMARY | 2023-10-23 22:15 | External Medical Summary | Summary of Care ---
Author Name Unknown Organization [facility] Address [address] [facility] [place] [address] Phone [phone] Care Team Providers Care Customer Service Representative Name Role Phone Unavailable Primary Care Provider Unavailabl e Reason for Visit * Reason Comments Return Visit Encounter Details Date Type Department Care Team Description 08/18/2023 Office Visit Gynecology/Obstetrics [facility] [address] [place] [address] Tasha Andrade CRNP [address] [place] [address] Normal in third trimester*; Multigravida of advanced maternal age in third trimester; History of macrosomia in infant in prior , currently ; History of abnormal cervical Pap smear; Antepartum anemia complicating Allergies No known active allergiesdocumented as of this encounter (statuses as of 08/18/2023) Medications Medication Sig Dispensed Refills Start Date End Date Status Multivitamin Adult Oral Tablet Chewable Take by mouth. 0 Active Folic Acid 0.8 MG Oral Capsule Take by mouth. 0 Active Iron-Vitamin C 65-125 MG Oral Tablet (Vitron C)Indications:Antepa rtum anemia complicating Take 1 Tablet by mouth in the morning. 60 Tablet 3 07/30/2023 Active Additional Information Patient not taking.Reported on 08/18/2023 documented as of this encounter (statuses as of 08/18/2023) Active Problems Problem Noted Date Antepartum anemia complicating 08/18/2023 History of abnormal cervical Pap smear 0 04/11/2023 Overview: Pap at NOB NILM/+HPV. Needs colpo . Normal 03/14/2023 AMA (advanced maternal age) multigravida 35+ 03/14/2023 History of macrosomia in in prior , currently 03/14/2023 Overview: 2nd child 4.338 kg - consider 3rd trimester growth u/s Estimated Date of Delivery Comme nts Yes 10/21/2023 Based on last me nstrual period of 01/14/2023 documented as of this encounter (statuses as of 08/18/2023) Social History Tobacco Use Types Packs/Day Years [...] Sign Reading Time Taken Comments Blood Pressure 104/62 08/18/2023 1:45 PM EDT Pulse - - Temperature - - Respiratory Rate - - Oxygen Saturation - - Inhaled Oxygen Concentration - - Weight 86.6 kg (191 lb) 08/18/2023 1:45 PM EDT Height - - Body Mass Index 31.78 07/11/2023 4:13 PM EDT documented in this encounter Progress Notes * STEVE Carrillo - 08/18/2023 1:47 PM EDT 30w 6d + movement. No regular ctx, leaking, bleeding. Taking an iron supplement, unsure of dose. Discussed recommended dose, plan to recheck CBC at next visit. Encouraged to check insurance requirements for breast pump rx. Declines Tdap/flu. 2 week return STEVE Nolan * Cara Hale LPN - 08/18/2023 1:44 PM EDT 30w6d Denies vaginal bleeding/rom + movement Declines tdap and flu Did not milk pickup driver Vitron C- taking iron supp. But unsure of dose documented in this encounter Plan of Treatment Upcoming Encounters Date Type Specialty Care Team Description 09/04/2023 Office Visit Gynecology Obstetrics Shelly Whipple PA-C [address] [place] [address] 09/19/2023 Office Visit Gynecology Obstetrics Tasha Andrade CRNP [address] [place] [address] 09/24/2023 Office Visit Gynecology Obstetrics Shelly Whipple PA-C [address] [place] [address] 10/03/2023 Office Visit Gynecology Obstetrics Tahmina Zhu, [facility] [address] [facility] [address] 10/08/2023 Office Visit Gynecology Obstetrics Shelly Whipple PA-C [address] [place] [address] 10/15/2023 Office Visit Gynecology Obstetrics Na Khan CRNP [address] [place] [address] 10/21/2023 Office Visit Gynecology Obstetrics Na Khan CRNP [address] [place] [address] Health Maintenance Due Date Last Done Comments [...]
--- OUTSIDE RECORDS SUMMARY | 2023-10-23 22:15 | External Medical Summary | Summary of Care ---
Author Name Unknown Organization [facility] Address [address] [place] [address] Phone [phone] Care Team Providers Care Dairy Cattle Farm Worker Name Role Phone Unavailable Primary Care Provider Unavailabl e Encounter Details Date Type Department Care Team (Late st Contact Info) Description 10/01/2023 Telephone Gynecology/Obstetrics Franco Fang [address] [place] [address] Na Khan CRNP [address] [place] [address] Allergies No known active allergiesdocumented as of [...] encounter Miscellaneous Notes * Telephone Encounter - Fatimah Ornelas LPN - 10/01/2023 9:37 AM EST Breast pump prescription given to Keyonna to fax to [employer]. documented in this encounter Plan of Treatment Upcoming Encounters Date Type Department Care Team (Late st Contact Info) Description 10/03/2023 9:30 AM EST Office Visit Gynecology/Obstetrics [facility] [address] [facility] [place] [address] Tahmina Zhu, DEJAH [address] [place] [address] 10/08/2023 4:30 PM EST Office Visit Gynecology/Obstetrics [facility] [address] [place] [address] Shelly Whipple PA-C [address] [place] [address] 10/15/2023 3:00 PM EST Office Visit Gynecology/Obstetrics [facility] [address] [place] [address] Na Khan CRNP [address] [place] [address] 10/21/2023 10:00 AM EST Office Visit Gynecology/Obstetrics [facility] [address] [place] [address] Na Khan CRNP [address] [place] [address] Health Maintenance Due Date Last Done Comments [...]
--- OUTSIDE RECORDS SUMMARY | 2023-10-23 22:15 | External Medical Summary | Summary of Care ---
Author Name Unknown Organization [facility] Address [address] [facility] [place] [address] Phone [phone] Care Team Providers Care Coding File Clerk Name Role Phone Unavailable Primary Care Provider Unavailabl e Reason for Visit * Reason Comments Return Visit Encounter Details Date Type Department Care Team Description 09/04/2023 Office Visit Gynecology/Obstetrics Franco Fang [address] [place] [id number] Shelly Whipple PA-C [address] [place] [address] Normal in third trimester*; Multigravida of advanced maternal age in third trimester; History of macrosomia in infant in prior , currently ; Uterine size date discrepancy ; History of abnormal cervical Pap smear; Antepartum anemia complicating Allergies No known active allergiesdocumented as of this encounter (statuses as of 09/04/2023) Medications Medication Sig Dispensed Refills Start Date [...] as of this encounter (statuses as of 09/04/2023) Active Problems Problem Noted Date Antepartum anemia [...] as of this encounter (statuses as of 09/04/2023) Social History Tobacco Use Types Packs/Day Years [...] Sign Reading Time Taken Comments Blood Pressure 110/72 09/04/2023 4:22 PM EDT Pulse - - Temperature - - Respiratory Rate - - Oxygen Saturation - - Inhaled Oxygen Concentration - - Weight - - Height 165.1 cm (5' 5") 09/04/2023 4:17 PM EDT Body Mass Index - - documented in this encounter Progress Notes * Shelly Whipple PA-C - 09/04/2023 4:30 PM EDT 33w2d S>D, growth ordered. Has been trending ahead each visit. History of macrosomia. Denies VB/LOF/contractions. Baby is moving appropriately. RTC in 2 weeks Shelly Whipple PA-C documented in this encounter Nursing Notes * Keyonna García RN - 09/04/2023 4:23 PM EDT Patient here for DAMION 33w2d No concerns Labor instructions given. documented in this encounter Plan of Treatment Upcoming Encounters Date Type Specialty Care Team Description 09/19/2023 Office Visit Gynecology Obstetrics Tasha Andrade CRNP [address] [place] [address] 09/19/2023 Imaging Radiology 09/25/2023 Office Visit Gynecology Obstetrics Na Khan CRNP [address] [place] [address] 10/03/2023 Office Visit Gynecology Obstetrics Tahmina Zhu, [facility] [address] [facility] [place] [address] 10/08/2023 Office Visit Gynecology Obstetrics Shelly Whipple PA-C [address] [place] [address] 10/15/2023 Office Visit Gynecology Obstetrics Na Khan CRNP [address] [place] [address] 10/21/2023 Office Visit Gynecology Obstetrics Na Khan CRNP [address] [place] [address] Scheduled Orders Name Type Priority Associated Diagnoses Orde r Schedule US PREG FOLLOW-UP EACH FETUS Medical Imaging Routine Normal in third trimester Uterine size date discrepancy Expected: 09/04/2023, Expires: 10/05/2024 Health Maintenance Due Date Last Done Comments [...] , currently with other poor obstetric history Uterine size date discrepancy Uterine size date discrepancy, antepartum condition or complication History of abnormal cervical Pap smear Personal history of other genital system and obstetric disorders Antepartum anemia complicating Anemia, antepartum documented in this encounter
--- OUTSIDE RECORDS SUMMARY | 2023-10-23 22:15 | External Medical Summary | Summary of Care ---
Author Name Unknown Organization [facility] Address [address] [facility] [place] [address] Phone [phone] Care Team Providers Care Custom Shop Worker Name Role Phone Unavailable Primary Care Provider Unavailabl e Reason for Visit * Reason Comments Return Visit Encounter Details Date Type Department Care Team ([facility] st Contact Info) Description 09/19/2023 1:30 PM EDT Office Visit Gynecology/Obstetric s Franco Fang [address] [place] [address] BackTasha james CRNP [address] [place] [address] Normal in third trimester*; Multigravida of advanced [...] money to get more. Never true 05/30/2023 [place] Depression Scale Answer Date Recorded [place] Depression Scale Total 4 09/19/2023 The thought [...] Sign Reading Time Taken Comments Blood Pressure 100/60 09/19/2023 1:09 PM EDT Pulse - - Temperature - - Respiratory Rate - - Oxygen Saturation - - Inhaled Oxygen Concentration - - Weight - - Height - - Body Mass Index - - documented in this encounter Progress Notes * Tasha Andrade CRNP - 09/19/2023 1:13 PM EDT 35w3d Scheduled for a growth scan after this appointment. S>D Baby is moving well. Some BH ctx but nothing regular/painful, mostly with walking. Undecided on contraception. Discussed GBS swab to be collected at next visit. Will recheck CBC. Return in 1 week. STEVE Nolan * Cara Hale LPN - 09/19/2023 1:09 PM EDT 35w3d Denies vaginal bleeding/rom + movement No new concerns documented in this encounter Plan of Treatment Upcoming Encounters Date Type Department Care Team (Late st Contact Info) Description 09/19/2023 1:50 PM EDT Laboratory Laboratory, [facility] [address] [facility] [place] [id number] uBddy Fang [facility] 132 [facility] [place] [address] Antepartum anemia complicating 09/19/2023 2:15 PM EDT Imaging Radiology [facility]nd [facility] 132 [facility] [place] [address] Normal in third trimester; Uterine size date discrepancy 09/25/2023 8:45 AM EDT Office Visit Gynecology/Obstetric renee Gamez Fang [address] [facility] [place] [address] Na Khan CRNP 132 [facility] [place] [address] 10/03/2023 9:30 AM EST Office Visit Gynecology/Obstetric renee Fang [address] [facility] [place] [address] Tahmina Zhu, DEJAH [address] [facility] [place] [address] 10/08/2023 4:30 PM EST Office Visit Gynecology/Obstetric s Franco Guillermos [address] [place] [address] Shelly Whipple PA-C [address] [place] [address] 10/15/2023 3:00 PM EST Office Visit Gynecology/Obstetric renee Fang [address] [place] [address] Na Khan CRNP [address] [place] [address] 10/21/2023 10:00 AM EST Office Visit Gynecology/Obstetric renee Fang [address] [place] [address] Na Khan CRNP [address] [place] [address] Pending Results Name Type Priority Associated Diagnoses Date /Time CBC WITH WBC DIFFERENTIAL AND ANEMIA REFLEX WORKUP Lab Routine Antepartum anemia complicating 09/19/2023 1:23 PM EDT Scheduled Orders Name Type Priority Associated Diagnoses Orde r Schedule CBC WITH WBC DIFFERENTIAL AND ANEMIA REFLEX WORKUP Lab Routine Antepartum anemia complicating Expected: 09/19/2023 (Approximate), Expires: 09/19/2024 Health Maintenance Due Date Last Done Comments [...] obstetric disorders Antepartum anemia complicating Anemia, antepartum Normal in third trimester Uterine size date discrepancy Uterine size date discrepancy, antepartum condition or complication Antepartum anemia complicating Anemia, antepartum documented in this encounter
--- OUTSIDE RECORDS SUMMARY | 2023-10-23 22:15 | External Medical Summary ---
Author Name Unknown Address Unknown Organization [id number]:[place] [place] [address] [facility] [place] [address] Laboratory Report Ordering Provider Test Date Status VINIBACKER 09/19/2023 13:23:57 Final Observation Date Value Abnormality Reference (Units ) Status SYNC LEUKOCYTES IN BLOOD BY AUTOMATED COUNT 09/19/2023 13:23:57 9.46 4.00-10.80 (K/uL) Final Segs 09/19/2023 13:23:57 74.1 40.0-75.0 (%) Final Lymphs % 09/19/2023 13:23:57 18.1 18.0-42.0 (%) Final Monos 09/19/2023 13:23:57 6.0 1.0-11.0 (%) Final Eosinophils 09/19/2023 13:23:57 0.4 0.0-6.0 (%) Final Basos 09/19/2023 13:23:57 0.4 0.0-2.0 (%) Final Immature Granulocyte, Percent 09/19/2023 13:23:57 1.0 0.0-2.0 (%) Final Absolute Segs 09/19/2023 13:23:57 7.01 1.80-7.70 (K/uL) Final Lymphs, absolute 09/19/2023 13:23:57 1.71 1.00-4.80 (K/ul) Final Monos, Abs 09/19/2023 13:23:57 0.57 0.00-1.10 (K/uL) Final Eos, Abs 09/19/2023 13:23:57 0.04 0.00-0.70 (K/uL) Final Basos, Abs 09/19/2023 13:23:57 0.04 0.00-0.20 (K/uL) Final Immature Granulocytes, Number 09/19/2023 13:23:57 0.09 0.00-0.20 (K/uL) Final Performing Location [facility] [place] [address] [facility] [address]
--- OUTSIDE RECORDS SUMMARY | 2023-10-23 22:15 | External Medical Summary | Summary of Care ---
Author Name Unknown Organization [facility] Address [address] [facility] [place] [place] [address] Phone [phone] Care Team Providers Care Mold Setter Name Role Phone Unavailable Primary Care Provider Unavailabl e Reason for Visit * Reason Comments Return Visit Encounter Details Date Type Department Care Team (Late st Contact Info) Description 09/25/2023 8:45 AM EDT Office Visit Gynecology/Obstetric s Franco Fang [address] [place] [address] Na Khan CRNP [address] [place] [address] Multigravida of advanced maternal age in third trimester*; Normal in third trimester; History of macrosomia in infant in prior , currently ; History of abnormal cervical Pap smear; Antepartum anemia complicating Allergies No known active allergiesdocumented as of this encounter (statuses as of 09/25/2023) Medications Medication Sig Dispensed Refills Start Date [...] as of this encounter (statuses as of 09/25/2023) Active Problems Problem Noted Date Diagnosed Date [...] as of this encounter (statuses as of 09/25/2023) Social History Tobacco Use Types Packs/Day Years [...] money to get more. Never true 05/30/2023 [place] Depression Scale Answer Date Recorded [place] Depression Scale Total 4 09/19/2023 The thought [...] No contractions, bleeding or LOF. GBS today. Sap Bw Bi Developer Documentation Provider requested welding machine operator plasma arc. Name of welding machine operator plasma arc: STEVE Marcus * Fatimah Ornelas LPN - 09/25/2023 8:43 AM EDT 36w2d Pt denies any concerns. GBS today. documented in this encounter Plan of Treatment Upcoming Encounters Date Type Department Care Team (Late st Contact Info) Description 10/03/2023 9:30 AM EST Office Visit Gynecology/Obstetrics [facility] [address] [place] [address] Tahmina Zhu, CN [address] [place] [address] 10/08/2023 4:30 PM EST Office Visit Gynecology/Obstetrics [facility] [address] [place] [address] Shelly Whipple PA-C [address] [place] [address] 10/15/2023 3:00 PM EST Office Visit Gynecology/Obstetrics [facility] [address] [place] [address] Na Khan CRNP [address] [place] [address] 10/21/2023 10:00 AM EST Office Visit [facility]cology[facility] [address] [place] [address] Na Khan CRNP [address] [place] [address] Pending Results Name Type Priority Associated Diagnoses Date /Time GROUP B STREP CULTURE/PCR Lab Routine Normal in third trimester 09/25/2023 9:09 AM EDT Health Maintenance Due Date Last Done [...] as of this encounter Visit Diagnoses Diagnosis Multigravida of advanced maternal age in third trimester- Primary Normal in third trimester History of macrosomia in in prior , currently with other poor obstetric history History of abnormal cervical Pap smear Personal history of other genital system and obstetric disorders Antepartum anemia complicating Anemia, antepartum documented in this encounter
--- OUTSIDE RECORDS SUMMARY | 2023-10-23 22:15 | External Medical Summary | Summary of Care ---
Author Name Unknown Organization [facility] Address [address] [facility] [address] Phone [phone] Care Team Providers Care Travel Pta Name Role Phone Unavailable Primary Care Provider Unavailabl e Encounter Details Date Type Department Care Team Description 07/30/2023 Telephone Gynecology/Obstetrics Franco Fang [address] [place] [address] Shelly Whipple PA-C [address] [place] [address] Allergies No known active allergiesdocumented as of this encounter (statuses as of 07/30/2023) Medications Medication Sig Dispensed Refills Start Date End Date Status Multivitamin Adult Oral Tablet Chewable Take by mouth. 0 Active Folic Acid 0.8 MG Oral Capsule Take by mouth. 0 Active Iron-Vitamin C 65-125 MG Oral Tablet (Vitron C)Indications:Antepart um anemia complicating Take 1 Tablet by mouth in the morning. 60 Tablet 3 07/30/2023 Active documented as of this encounter (statuses as of 07/30/2023) Active Problems Problem Noted Date History of [...] as of this encounter (statuses as of 07/30/2023) Social History Tobacco Use Types Packs/Day Years [...] encounter Miscellaneous Notes * Telephone Encounter - Dara Joel LPN - 07/30/2023 10:32 AM EDT Spoke with pt she verbalized understanding * Telephone Encounter - Shelly Whipple PA-C - 07/30/2023 9:59 AM EDT Pt with iron deficiency anemia. Passed glucose testing. She should start once daily oral iron. I sent this pharmacy for her. She can also increase iron in the diet with red meat, green leafy vegetables and iron fortified cereals. Iron may make her constipated, can take colace PRN. May also darken stools. Please make aware. Shelly Whipple PA-C documented in this encounter Plan of Treatment Upcoming Encounters Date Type Specialty Care Team Description 08/18/2023 Office Visit Gynecology Obstetrics Backer, STEVE Miller [address] [facility] [place] [address] Health Maintenance Due Date Last Done Comments [...] of this encounter Visit Diagnoses Diagnosis Antepartum anemia complicating - Primary Anemia, antepartum documented in this encounter
--- OUTSIDE RECORDS SUMMARY | 2023-10-23 22:16 | External Medical Summary ---
Author Name Unknown Address Unknown Organization K01:LABORATORY [facility] [place] - [address] [place] [address] Laboratory Report Ordering Provider Test Date Status CHUCK THORNTON 07/29/2023 16:25:12 Final Observation Date Value Abnormality Reference (Units ) Status Glucose [Moles/volume] in Serum or Plasma --1 hour post 50 g glucose PO 07/29/2023 16:25:12 125 70-129 (mg/dL) Final Performing Location LABORATORY [facility] [place] - [address] [place] [address]
--- OUTSIDE RECORDS SUMMARY | 2023-10-23 22:16 | External Medical Summary ---
Author Name Unknown Address Unknown Organization K01:[facility]ATORY [facility] - [address] [place] [address] Laboratory Report Ordering Provider Test Date Status CHUCK THORNTON 07/29/2023 16:25:12 Final Observation Date Value Abnormality Reference (Units ) Status Ferritin 07/29/2023 16:25:12 12 Below low normal 13- 150 (ng/mL) Final Performing Location [facility]ATORY [facility] - [address] [place] [address]
--- OUTSIDE RECORDS SUMMARY | 2023-10-23 22:16 | External Medical Summary ---
Author Name Unknown Address Unknown Organization K01:LABORATORY [facility] [place] - [address] [place] [address] Laboratory Report Ordering Provider Test Date Status CHUCK THORNTON 07/29/2023 16:25:12 Final Observation Date Value Abnormality Reference (Units ) Status Treponema pallidum Ab [Presence] in Serum by Immunoassay 07/29/2023 16:25:12 Nonreactive Nonreactive Final No serologic evidence of syp hilis. No additional testing clinicially indicated at this time. Consider repeat testing in 2-4 weeks if acute or primary syphilis is suspected. Performing Location LABORATORY [facility] [place] - [address] [place] [address]
--- OUTSIDE RECORDS SUMMARY | 2023-10-23 22:16 | External Medical Summary ---
Author Name Unknown Address Unknown Organization K01:LABORATORY [facility] [place] [facility] [place] [address] [place] [address] Laboratory Report Ordering Provider Test Date Status CHUCK THORNTON 07/29/2023 16:25:12 Final Observation Date Value Abnormality Reference (Units ) Status WBC, Total 07/29/2023 16:25:12 9.86 4.00-10.8 0 (K/uL) Final RBC 07/29/2023 16:25:12 3.57 3.85-5.15 (M/uL) Final Hemoglobin 07/29/2023 16:25:12 11.1 Below low normal 12 .0-15.3 (g/dL) Final Anemia reflex testing trigge rs on a HGB < 12.0 for Females and HGB < 13.0 for Males in accordance with the WHO Anemia Guidelines
Anemia reflex testing triggers on a HGB < 12.0 for Females and HGB < 13.0 for Males in accordance with the WHO Anemia Guidelines HCT 07/29/2023 16:25:12 35.0 Below low normal 36. 0-45.2 (%) Final MCV 07/29/2023 16:25:12 98.0 81.5-97.5 (fL) Final MCH 07/29/2023 16:25:12 31.1 27.0-34.0 (pg) Final MCHC 07/29/2023 16:25:12 31.7 32.0-36.0 (g/dL) Final RDW 07/29/2023 16:25:12 14.0 11.5-15.5 (%) Final Platelets 07/29/2023 16:25:12 206 140-400 (K /uL) Final MPV 07/29/2023 16:25:12 11.4 6.6-11.1 ( fL) Final Nucleated erythrocytes/100 leukocytes [Ratio] in Blood by Automated count 07/29/2023 16:25:12 0 <=0 (/100 WBCs) Final Performing Location LABORATORY [facility] [place] - [address] [facility] [address]
--- OUTSIDE RECORDS SUMMARY | 2023-10-23 22:16 | External Medical Summary ---
Author Name Unknown Address Unknown Organization K01:[facility]ATORY [facility] [place] - [address] [place] [address] Laboratory Report Ordering Provider Test Date Status CHUCK THORNTON 07/29/2023 16:25:12 Final Observation Date Value Abnormality Reference (Units ) Status Folic Acid 07/29/2023 16:25:12 15.8 >4.5 (ng/ mL) Final Performing Location [facility] - [address] [place] [address]
--- OUTSIDE RECORDS SUMMARY | 2023-10-23 22:16 | External Medical Summary ---
Author Name Unknown Address Unknown Organization K01:LABORATORY [facility] [place] - [facility] [place] [address] Laboratory Report Ordering Provider Test Date Status HILLARYCHUCK 07/29/2023 16:25:12 Final Observation Date Value Abnormality Reference (Units ) Status Retic, % (auto) 07/29/2023 16:25:12 2.46 Above high normal 0.80-1.90 (%) Final Reticulocytes, Absolute 07/29/2023 16:25:12 90.0 31.3-100.1 (K/uL) Final Reticulocyte fraction, immature 07/29/2023 16:25:12 25.6 Above high normal 2.5-20.6 (%) Final Reticulocyte HGB 07/29/2023 16:25:12 35.3 29.7-37.4 (pg) Final Performing Location LABORATORY [facility] [place] - [address] [place] [address]
--- OUTSIDE RECORDS SUMMARY | 2023-10-23 22:16 | External Medical Summary | Summary of Care ---
Author Name Unknown Organization [facility] Address [address] [facility] [place] [address] Phone [phone] Care Team Providers Care Inverted Block Operator Name Role Phone Unavailable Primary Care Provider Unavailabl e Reason for Visit * Reason Comments Return Visit Encounter Details Date Type Department Care Team Description 06/13/2023 Office Visit Gynecology/Obstetrics [facility] [address] [place] [address] Na Khan CRNP [address] [place] [address] Multigravida of advanced maternal age in second trimester*; Normal in second trimester; History of macrosomia in infant in prior , currently ; History of abnormal cervical Pap smear Allergies No known active allergiesdocumented as of this encounter (statuses as of 06/13/2023) Medications Medication Sig Dispensed Refills Start Date End Date Status Multivitamin Adult Oral Tablet Chewable Take by mouth. 0 Activ e Folic Acid 0.8 MG Oral Capsule Take by mouth. 0 Active documented as of this encounter (statuses as of 06/13/2023) Active Problems Problem Noted Date History of [...] as of this encounter (statuses as of 06/13/2023) Social History Tobacco Use Types Packs/Day Years [...] Sign Reading Time Taken Comments Blood Pressure 112/78 06/13/2023 10:24 AM EDT Pulse - - Temperature - - Respiratory Rate - - Oxygen Saturation - - Inhaled Oxygen Concentration - - Weight 81.6 kg (180 lb) 06/13/2023 10:24 AM EDT Height 165.1 cm (5' 5") 06/13/2023 10:24 AM EDT Body Mass Index 29.95 06/13/2023 10:24 AM EDT documented in this encounter Progress Notes * STEVE Nowak - 06/13/2023 10:45 AM EDT 21w3d No concerns. Baby is moving well. No bleeding or LOF. Anatomy u/s done a few days ago, WNL. STEVE Nowak documented in this encounter Nursing Notes * DOMINGUEZ Marie - 06/13/2023 10:28 AM EDT 21w3d Pt denies any concerns. documented in this encounter Plan of Treatment Upcoming Encounters Date Type Specialty Care Team Description 08/18/2023 Office Visit Gynecology Obstetrics Backer, STEVE Miller [address] [place] [address] Health Maintenance Due Date Last Done Comments Diabetes Screening 1984 Hepatitis B (1 of 3 - 3-dose series) 1984 COVID-19 Vaccine (#1) 1984 Depression Screening, Annual for Pts 12 and Over 1996 DTaP,Tdap,and Td Vaccines (1 - Tdap) 2003 Influenza Vaccine (FLU shot) (#1) 2023 Pap Smear 03/14/2028 03/14/2023, 03/07/2022 Hepatitis C Screening Completed 03/14/2023 , 03/14/2023, [...] Diagnosis Multigravida of advanced maternal age in second trimester- Primary Normal in second trimester History of macrosomia in infant in prior , currently with other poor obstetric history History of abnormal cervical Pap smear Personal history of other genital system and obstetric disorders documented in this encounter
--- OUTSIDE RECORDS SUMMARY | 2023-10-23 22:16 | External Medical Summary | Summary of Care ---
Author Name Unknown Organization [facility] Address [address] [place] [place] [address] Phone [phone] Care Team Providers Care Chemical Laboratory Assistant Name Role Phone Unavailable Primary Care Provider Unavailabl e Reason for Visit * Reason Comments Outpatient Testing Encounter Details Date Type Department Care Team Description 07/29/2023 Laboratory Laboratory [address] [place] [phone] [place] [address] Arrived Allergies No known active allergiesdocumented as of [...] Team Description 08/18/2023 Office Visit Gynecology Obstetrics BackerTasha CRNP [address] [place] [address] Health Maintenance Due Date Last Done Comments [...]
--- OUTSIDE RECORDS SUMMARY | 2023-10-23 22:16 | External Medical Summary ---
Author Name Unknown Address Unknown Organization K01:[place] [facility] [place] [address] [place] [address] Laboratory Report Ordering Provider Test Date Status CHUCK THORNTON 07/29/2023 16:25:12 Final Observation Date Value Abnormality Reference (Units ) Status TSH 07/29/2023 16:25:12 1.03 0.27-4.20 (uIU/mL) Final Performing Location LAB[facility]ATORY [facility] - [address] [place] [address]
--- OUTSIDE RECORDS SUMMARY | 2023-10-23 22:16 | External Medical Summary | Summary of Care ---
Author Name Unknown Organization [facility] [address] [facility] [address] Phone [phone] Care Team Providers Care Photographic Hand Developer Name Role Phone Unavailable Primary Care Provider Unavailabl e Reason for Visit * Reason Onset Date Comments Appointment 07/11/2023 Encounter Details Date Type Department Care Team Description 07/11/2023 Telephone Gynecology/Obstetrics [facility] [address] [place] [address] Shelly Whipple PA-C [address] [place] [address] Appointment Allergies No known active allergiesdocumented as of this encounter (statuses as of 07/14/2023) Medications Medication Sig Dispensed Refills Start Date End Date Status Multivitamin Adult Oral Tablet Chewable Take by mouth. 0 Activ e Folic Acid 0.8 MG Oral Capsule Take by mouth. 0 Active documented as of this encounter (statuses as of 07/14/2023) Active Problems Problem Noted Date History of [...] as of this encounter (statuses as of 07/14/2023) Social History Tobacco Use Types Packs/Day Years [...] encounter Miscellaneous Notes * Telephone Encounter - RICHIE Sands - 07/14/2023 9:02 AM EDT Apt scheduled; LMOM * Telephone Encounter - Radha Young - 07/11/2023 5:22 PM EDT Pt needs DAMION f/u. Thank you :) documented in this encounter Plan of Treatment Upcoming Encounters Date Type Specialty Care Team Description 08/18/2023 Office Visit Gynecology Obstetrics DaviderTasha CRNP [address] [place] [address] Health Maintenance Due Date Last Done Comments [...]
--- OUTSIDE RECORDS SUMMARY | 2023-10-23 22:16 | External Medical Summary | Summary of Care ---
Author Name Unknown Organization [facility] Address [address] [facility] [place] [address] Phone [phone] Care Team Providers Care Cart Pusher Name Role Phone Unavailable Primary Care Provider Unavailabl e Reason for Visit * Reason Comments Return Visit Encounter Details Date Type Department Care Team Description 05/14/2023 Office Visit Gynecology/Obstetrics Phyliciarenee Fang [address] [place] [id number] Na Khan CRNP [address] [place] [id number] Normal in second trimester*; Multigravida of advanced maternal age in second trimester; History of macrosomia in infant in prior , currently ; History of abnormal cervical Pap smear Allergies No known active allergiesdocumented as of this encounter (statuses as of 05/14/2023) Medications Medication Sig Dispensed Refills Start Date End Date Status Multivitamin Adult Oral Tablet Chewable Take by mouth. 0 Activ e Folic Acid 0.8 MG Oral Capsule Take by mouth. 0 Active documented as of this encounter (statuses as of 05/14/2023) Active Problems Problem Noted Date History of [...] as of this encounter (statuses as of 05/14/2023) Social History Tobacco Use Types Packs/Day Years Used Date Smoking Tobacco: Never Smokeless Tobacco: Never Alcohol Use Standard Drinks/Week Comments Not Currently 0 (1 standard drink = 0.6 oz pur e alcohol) Food Insecurity Answer Date Recorded Within the past 12 months, y ou worried that your food would run out before you got money to buy more. Never true 02/27/2023 Within the past 12 months, t he food you bought just didn't last and you didn't have money to get more. Never true 02/27/2023 Estimated Date of Delivery Comme nts Yes 10/21/2023 Based on last me nstrual period of 01/14/2023 Sex Assigned at Date Recorded Female 04/08/2022 10:09 PM EDT Job Start Date Occupation Industry Not on file Not on file Not on file Travel History Travel Start Travel End [facility] 04/29/2023 05/06/2023 documented as of this encounter Last Filed Vital Signs Vital Sign Reading Time Taken Comments Blood Pressure 104/68 05/14/2023 9:25 AM EDT Pulse - - Temperature - - Respiratory Rate - - Oxygen Saturation - - Inhaled Oxygen Concentration - - Weight 79.2 kg (174 lb 9.6 oz) 05/14/2023 9:25 A M EDT Height 165.1 cm (5' 5") 05/14/2023 9:25 AM EDT Body Mass Index 29.05 05/14/2023 9:25 AM EDT documented in this encounter Progress Notes * STEVE Nowak - 05/14/2023 10:29 AM EDT 17w1d Complaints: none Feeling good. +FM. No contractions, bleeding, or LOF. Anatomy u/s with next visit. STEVE Nowak documented in this encounter Nursing Notes * DOMINGUEZ Marie - 05/14/2023 9:39 AM EDT 17w1d Pt denies any concerns. documented in this encounter Plan of Treatment Upcoming Encounters Date Type Specialty Care Team Description 06/10/2023 Imaging Radiology 06/13/2023 Office Visit Gynecology Obstetrics Erin, STEVE Orozco [address] [place] [address] Scheduled Orders Name Type Priority Associated Diagnoses Orde r Schedule US PREG SINGLE/1ST GEST, 14 WEEKS OR LATER Medical Imaging Routine Normal in second trimester Expected: 06/13/2023 (Approximate), Expires: 06/13/2024 Health Maintenance Due Date Last Done Comments Diabetes Screening 1984 Hepatitis B (1 of 3 - 3-dose series) 1984 COVID-19 Vaccine (#1) 1984 Depression Screening, Annual for Pts 12 and Over 1996 DTaP,Tdap,and Td Vaccines (1 - Tdap) 2003 Influenza Vaccine (FLU shot) (Season Ended) 2023 Pap Smear 03/14/2028 03/14/2023, 03/07/2022 Hepatitis [...] encounter Visit Diagnoses Diagnosis Normal in second trimester- Primary Multigravida of advanced maternal age in second trimester History of macrosomia in in prior , currently with other poor obstetric history History of abnormal cervical Pap smear Personal history of other genital system and obstetric disorders documented in this encounter
--- OUTSIDE RECORDS SUMMARY | 2023-10-23 22:16 | External Medical Summary ---
Author Name Unknown Address Unknown Organization [id number]:[facility] [place] [facility] [address] [facility] [address] Laboratory Report Ordering Provider Test Date Status CHUCK THORNTON 07/29/2023 16:25:12 Final Observation Date Value Abnormality Reference (Units ) Status Iron 07/29/2023 16:25:12 93 33-151 (ug/dL) Final Iron-binding capacity 07/29/2023 16:25:12 461 Above high normal 250-425 (ug/dL) Final Transferrin Sat % 07/29/2023 16:25:12 20 15-55 (%) Final Performing Location LAB[facility] [place] [facility] [address] [facility] [address]
--- OUTSIDE RECORDS SUMMARY | 2023-10-23 22:16 | External Medical Summary | Summary of Care ---
Author Name Unknown Organization [facility] Address [address] [facility] [place] [address] Phone [phone] Care Team Providers Care Applique Cutter Name Role Phone Unavailable Primary Care Provider Unavailabl e Reason for Visit * Reason Comments Return Visit Encounter Details Date Type Department Care Team Description 07/11/2023 Office Visit Gynecology/Obstetrics Franco Fang [address] [place] [phone] Shelly Whipple PA-C [address] [place] [address] Normal in second trimester*; Multigravida of advanced maternal age in second trimester; History of macrosomia in infant in prior , currently ; History of abnormal cervical Pap smear Allergies No known active allergiesdocumented as of this encounter (statuses as of 07/11/2023) Medications Medication Sig Dispensed Refills Start Date End Date Status Multivitamin Adult Oral Tablet Chewable Take by mouth. 0 Activ e Folic Acid 0.8 MG Oral Capsule Take by mouth. 0 Active documented as of this encounter (statuses as of 07/11/2023) Active Problems Problem Noted Date History of [...] as of this encounter (statuses as of 07/11/2023) Social History Tobacco Use Types Packs/Day Years [...] Sign Reading Time Taken Comments Blood Pressure 106/6 07/11/2023 4:13 PM EDT Pulse - - Temperature - - Respiratory Rate - - Oxygen Saturation - - Inhaled Oxygen Concentration - - Weight 83 kg (183 lb) 07/11/2023 4:13 PM EDT Height 165.1 cm (5' 5") 07/11/2023 4:13 PM EDT Body Mass Index 30.45 07/11/2023 4:13 PM EDT documented in this encounter Progress Notes * Shelly Whipple PA-C - 07/11/2023 4:23 PM EDT 25w3d Reviewed third tri labs including glucose. She reports some upcoming difficulties in return for labs and OB d/t school schedule. 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 Wediscussed lab advised between - week. Importance of testing especially given h/o macrosomia. She is not concerned as no history of GDM. Denies bleeding/leaking/contractions. Affirms FM. RTC in 3 weeks Shelly Whipple PA-C * Sofia Gomez LPN - 07/11/2023 4:10 PM EDT 25w3d Denies concerns. documented in this encounter Plan of Treatment Upcoming Encounters Date Type Specialty Care Team Description 08/18/2023 Office Visit Gynecology Obstetrics Backer, STEVE Miller [address] [place] [phone] Scheduled Orders Name Type Priority Associated Diagnoses Orde r Schedule 50-G GESTATIONAL GLUCOSE, 1 HOUR Lab Routine Normal in second trimester History of macrosomia in in prior , currently Expected: 07/18/2023 (Approximate), Expires: 07/11/2024 CBC WITH WBC DIFFERENTIAL AND ANEMIA REFLEX WORKUP Lab Routine Normal in second trimester Expected: 07/18/2023 (Approximate), Expires: 07/11/2024 SYPHILIS ANTIBODY SCREEN WITH REFLEX TO RPR Lab Routine Normal in second trimester Expected: 07/18/2023 (Approximate), Expires: 07/11/2024 Health Maintenance Due Date Last Done Comments [...]
--- OUTSIDE RECORDS SUMMARY | 2023-10-23 22:16 | External Medical Summary ---
Author Name Unknown Address Unknown Organization [id number]:LABORATORY [facility] [place] - [facility] [address] [place] [address] Laboratory Report Ordering Provider Test Date Status CHUCK THORNTON 07/29/2023 16:25:12 Final Observation Date Value Abnormality Reference (Units ) Status Creatinine 07/29/2023 16:25:12 0.8 0.5-1.0 (mg/dL) Final Glomerular filtration rate/1.73 sq M.predicted [Volume Rate/Area] in Serum, Plasma or Blood by Creatinine-based formula (CKD-EPI) 07/29/2023 16:25:12 >90 >=60 (mL/min) Final eGFR is calculated based on the CKD-EPI 2020 equation Performing Location LABORATORY [facility] [place] - [address] [place] [address]
--- OUTSIDE RECORDS SUMMARY | 2023-10-23 22:16 | External Medical Summary ---
Author Name Unknown Address Unknown Organization [id number]:[facility]ORY [facility] [place] - [address] [place] [address] Laboratory Report Ordering Provider Test Date Status CHUCK THORNTON 07/29/2023 16:25:12 Final Observation Date Value Abnormality Reference (Units ) Status Vitamin B12 07/29/2023 16:25:12 701 489-2300 (pg/mL) Final Performing Location LABORATORY C - [address] [place] [address]
[2023-10-23] MEDS: DOCUSATE SODIUM 100 MG CAP PO SCH (22:20)
[2023-10-24 06:36] LABS: Hematocrit (blood only) 38.5 % (37.0-47.0); Hemoglobin 12.7 g/dl (12.0-16.0); Mean Corpuscular Hemoglobin 32.2 pg (25.0-34.0); Mean Corpuscular Volume 97.5 fL (80.0-100.0); Mean Platelet Volume 11.9 fL (9.4-12.4); Platelet Count 148 K/uL (130-400); RDW Coefficient of Variation 14.3 % (11.5-14.5); RDW Standard Deviation 51.7 fL (36.4-46.3); Red Blood Count 3.95 M/uL (4.20-5.40); White Blood Count 15.52 K/ul (4.8-10.8)
[2023-10-24] MEDS: FERROUS SULFATE 325 MG TAB PO SCH (08:48)
[2023-10-24] MEDS: DOCUSATE SODIUM 100 MG CAP PO SCH ×2 (08:48→21:11)
[2023-10-24] MEDS: PRENATAL VITAMIN 1 TAB PO SCH (08:48)
--- NOTE | 2023-10-24 09:34 | Obstetrical Progress Note ---
Date of Service October 24, 2023 Assessment & Plan (1) Normal course: PPD #1 pt doing well wishes to be discharged home tomorrow Results & Data Vital Signs (Past 12 Hours) Vital Signs Temp Pulse Resp BP Pulse Ox O2 Del Method 10/24/23 08:10 36.7 C 79 18 110/78 99 Room Air 10/24/23 04:31 36.7 C 66 16 110/76 Room Air 10/24/23 00:30 36.6 C 71 16 105/71 Room Air 10/23/23 22:13 36.8 C 85 16 110/65 Room Air
[2023-10-24] MEDS ORDERED: bisacodyL 5 MG TABEC PO SCH (20:00)
[2023-10-25] MEDS: PRENATAL VITAMIN 1 TAB PO SCH (07:47)
[2023-10-25] MEDS: DOCUSATE SODIUM 100 MG CAP PO SCH (07:47)
[2023-10-25] MEDS: FERROUS SULFATE 325 MG TAB PO SCH (07:47)
[2023-10-25 07:51] LABS: Basophils # (auto) 0.05 K/uL (0.00-0.20); Basophils % (auto) 0.5 %; Eosinophils # (auto) 0.13 K/uL (0.00-0.50); Eosinophils % (auto) 1.2 %; Hematocrit (blood only) 34.4 % (37.0-47.0); Hemoglobin 11.7 g/dl (12.0-16.0); Immature Granulocytes # (auto) 0.07 K/uL (0.01-0.20); Immature Granulocytes % (auto) 0.7 %; Lymphocytes # (auto) 2.39 K/uL (1.20-3.40); Lymphocytes % (auto) 22.3 %; Mean Corpuscular Hemoglobin 32.2 pg (25.0-34.0); Mean Corpuscular Volume 94.8 fL (80.0-100.0); Mean Platelet Volume 11.6 fL (9.4-12.4); Monocytes # (auto) 0.79 K/uL (0.11-0.59); Monocytes % (auto) 7.4 %; Neutrophils # (auto) 7.28 K/uL (1.40-6.50); Neutrophils % (auto) 67.9 %; Platelet Count 150 K/uL (130-400); RDW Coefficient of Variation 14.4 % (11.5-14.5); RDW Standard Deviation 50.3 fL (36.4-46.3); Red Blood Count 3.63 M/uL (4.20-5.40); White Blood Count 10.71 K/ul (4.8-10.8)
--- NOTE | 2023-10-25 08:11 | Obstetrical Progress Note ---
Date of Service October 25, 2023 Assessment & Plan (1) Normal course: PPD #2 pt doing well d/c home with instrcutions Results & Data Vital Signs (Past 12 Hours) Vital Signs Temp Pulse Resp BP Pulse Ox O2 Del Method 10/25/23 07:20 36.7 C 70 18 107/72 95 Room Air 10/24/23 23:32 36.9 C 72 18 104/72 95 Room Air
== END 2023-10-25 11:15 | disposition home or self-care (01) | DRG 807 ==
LOC: OPB 13:06 → 4S1 13:18 → 4E2 21:37